=== PATIENT | female | born 1950 | race Caucasian/White ===

== ENCOUNTER 2017-03-11 09:18 | Observation (INO) | payer MEDICARE ==
[~2017-03-11] VITALS: Ht 162.6 cm; Wt 91.6 kg
[2017-03-11] VITALS (12 sets, daily range): BP systolic 135–185; BP diastolic 65–93; PULSE 90–102; RESP 14–20; O2SAT 98–100
[~2017-03-11 09:18] MED LIST: ESOM40CA41 PO; ESTR42.52 VG; LISI-567 PO; TRAM50TA2 PO; VALA500T38 PO
--- NOTE | 2017-03-11 09:35 | ED.REPORT ---
HPI-General Illness Date of Service Mar 11, 2017 ED Provider: Dr. Jimenez 66 y/o female with a hx of HTN presents to the ED due to low blood count as advised by her PCP, Dr. Yoon. Pt reports that Dr. Yoon was concerned her low blood count may be due to a gastric ulcer because this has happened previously. She has been feeling fatigued for approximately 2-3 weeks and it has been getting progressively worse. She also complains of dyspnea on exertion , LUQ abdominal pain, and lower extremity swelling (x2 weeks). Pt also feels nauseated about once every two weeks but she this is improved with Nexium. Pt denies melena, vomiting, diarrhea, dizziness and chest pain. She has also been taking Aleve every two days for a few years and was recently taking a baby aspirin everyday for two weeks until Dr. Yoon stopped this yesterday. Nursing Notes Stated Complaint: LOW BLOOD COUNT Chief Complaint: General Complaint Nursing Notes Reviewed: Yes Allergies: Coded Allergies: Quinolones (Verified Allergy, Severe, BRAIN SWELLS, 05/29/15) ibuprofen (Verified Allergy, Intermediate, hand swelling, 05/29/15) ciprofloxacin (Verified Allergy, Unknown, headache, 05/29/15) Sulfa (Sulfonamide Antibiotics) (Verified Adverse Reaction, Severe, Headache, 03/11/17) codeine (Verified Adverse Reaction, Severe, VOMIT, 05/29/15) Uncoded Allergies: Nonsteroidal Anti-Inflammatory Agts (Allergy, Severe, SWELLING, 05/29/15) Scheduled Cyclobenzaprine (Cyclobenzaprine) 10 Mg Tablet 10 MG PO HS Esomeprazole Magnesium (Nexium) 40 Mg Capsule.dr 40 MG PO BID Estradiol (Estradiol) 1 Mg Tablet 1.5 MG PO QAM Lisinopril (Lisinopril) 20 Mg Tablet 20 MG PO DAILY Valacyclovir (Valacyclovir) 500 Mg Tablet 500 MG PO DAILY Scheduled PRN Triamcinolone Acet (Triamcinolone Acetonide Cream) 1 Applic/0.25 Gm Cr 1 APPLIC TOPICAL BID PRN PRN rash General Time Seen by MD: 09:34 Chief Complaint Other (Low blood count) Hx Obtained From: Patient Arrived By: Walk-in Sudden in Onset?: No Onset Occurred: More than a week ago... (3 weeks) Symptom Duration: Since onset Severity: Current: No pain currently Severity: Maximum: No pain Recent Healthcare: Recent doctor visit Similar Sx Previous: No Past Medical History Past Medical History HTN PNEUMONIA HIATIAL HERNIA GERD HYDRONEPHROSIS (stents placed) BACK PAIN Past Surgical History LEFT KNEE REPLACEMENT ERIN CHOLYCYSTECTOMY HYSTERCTOMY Smoking History Unknown if Ever Smoker Social History Alcohol Use: "Social" Other Social History: Good social support, Ambulatory Status Independent Review of Systems Full Review of Systems Constitutional: Reports: Fatigue Respiratory: Reports: Dyspnea on exertion Cardiovascular: Reports: Edema (Lower extremity), Denies: Chest pain GI: Reports: Abdominal pain (LUQ on palpation), Nausea, Denies: Diarrhea, Melena, Vomiting Complete sys rev & neg: except as marked. Physical Exam Vital Signs Vital Signs Date Time Temp Pulse Resp B/P Pulse Ox O2 Delivery O2 Flow Rate FiO2 03/11/17 11:40 36.6 90 20 152/65 100 Room Air 03/11/17 09:22 36.9 98 16 159/87 100 Initial VS: Reviewed, Vital signs abnormal Head / Eyes: Atraumatic, Normocephalic, PERRL Neck: Supple, Non-tender, Full range of motion Extremities: Vascular intact, Neuro intact Skin: Warm, Dry, No cyanosis Neurologic: Alert, Oriented, Nonfocal Psychiatric: Mood/affect normal, Behavior normal, Normal thought content General/Constitutional: Awake, Alert +Pallor ENT: Atraumatic Mucous membranes dry. Respiratory / Chest: Atraumatic, Breath sounds NL, Breath sounds = bilat, No rales, No rhonchi, No wheezing Cardiovascular: Heart rate NL, Regular rhythm, Heart sounds NL, No gallop, No murmurs 2+ edema in lower extremeties. Abdomen: Atraumatic, Soft, Non-tender, No guarding, No rebound, BS normoactive , No distention, No hernia, No palpable mass Rectum / Perineum: No gross blood Rectal for Blood: Positive: Blood - occult heme + Interpretation & Diagnostics Lab Results Interpretation Result Diagram: 03/11/17 1035 03/11/17 1013 Test 03/11/17 10:13 03/11/17 10:24 03/11/17 10:35 White Blood Count 5.2th/mm3 (3.8-10.1) Red Blood Count 2.93mil/mm3 (3.90-5.20) Mean Corpuscular Volume 82.9fL (81-100) Mean Corpuscular Hemoglobin 25.3pg (27.0-35.0) Mean Corpuscular Hemoglobin Concent 30.5% (32.0-37.0) Red Cell Distribution Width 14.8% (12.3-15.4) Platelet Count 187bil/L (150-400) Neutrophils (%) (Auto) 59.5% (40-74) Lymphocytes (%) (Auto) 25.1% (14-46) Monocytes (%) (Auto) 9.8% (4-12) Eosinophils (%) (Auto) 4.6% (0-5) Basophils (%) (Auto) 0.8% (0-3) Sodium Level 136mEq/L (134-144) Potassium Level 4.3mEq/L (3.5-5.2) Chloride Level 103mEq/L (97-108) Carbon Dioxide Level 19mmol/L (18-29) Blood Urea Nitrogen 11mg/dL (8-27) Creatinine 0.73mg/dL (0.57-1.00) Estimat Glomerular Filtration Rate 114mL/min (>59) Glucose Level 142mg/dL (60-99) Calcium Level 8.7mg/dL (8.5-10.1) Magnesium Level 1.9mg/dL (1.6-2.6) Total Bilirubin 0.9mg/dL (0.0-1.2) Aspartate Amino Transf (AST/SGOT) 71U/L (0-50) Alanine Aminotransferase (ALT/SGPT) 30U/L (0-32) Alkaline Phosphatase 118U/L (25-165) Troponin T 0.010ug/L (0.0-0.011) Total Protein 7.4g/dL (6.4-8.4) Albumin 3.5g/dL (3.4-5.0) Lipase 34U/L (13-60) Hold Mckeon Top Tube Received (Received) Hemoglobin 7.0g/dL (12.0-15.6) Hematocrit 23.0% (35.0-46.0) ECG Interpretation ECG Interpretation: sinus rhythm with 1st degree AV block. Rate [address] or QT changes. Time: 10:11 Interpreted by: ED physician Re-Eval/Medical Decision Med Decision/Clinical Course The patient presents with dyspnea on exertion, she is pale and has low hemoglobin and hematocrit. The patient is Hemoccult positive with brown stool. She recently started aspirin and is chronically on NSAIDs which is likely the cause of her symptoms. Given she symptomatic she will need transfusion. I spoke with GI and they will try to scope her today. The patient was started on Protonix. Source of Hx: Old records Time of Eval: 11:48 Re-Evaluation/Progress Note: Pt rechecked. Pt reports eating a cookie at 0600 this morning. Informed pt of need for admission. Pt understands and agrees with the plan for admission. All questions addressed. Consultation #1: Referral / Consult Name: Andrés Tim MD Call Returned at: 11:24 Office Assistant: Will see patient, Agrees with plan Note: Will be doing an upper endoscopy today. Consultation #2: Referral / Consult Name: Maggie Maloney MD Consulted With: Hospitalist Call Returned at: 11:58 Office Assistant: Will see patient, Agrees with eval, Agrees with plan, Accepts admit Counseled Regarding: Diagnosis, Lab results, Need for admission Discharge & Departure Primary Impression: Upper GI bleed Disposition: ADMITTED TO HOSPITAL Discharge Condition All VS Reviewed: Yes Referrals: Florencia Yoon MD (PCP) Scribe Attestation Portions of this note were transcribed by Tiffany Pena and Lola Jhaveri. I, , personally performed the history, physical exam and medical decision-making;I reviewed and confirmed the accuracy of the information in the transcribed note. Signed by Tiffany Jhaveri, Rajibe. 03/11/17 12:55 copies to: Florencia Yoon MD, Jena M MD Mar 11, 2017 09:35 Tiffany Pena Mar 11, 2017 09:56 Lola Jhaveri Mar 11, 2017 11:29
[2017-03-11] MEDS ORDERED: Pantoprazole 4 mg/mL 10 mL Inj IVPUSH ONE (09:55)
[2017-03-11] MEDS ORDERED: 0.9% Sodium Chloride 1,000 ML IV ONE (09:55)
[2017-03-11] MEDS ORDERED: Pantoprazole Inj 80 MG, Pharmacy To Mix 1 EA in 0.9% Sodium Chloride 80 ML IV ONE ×2 (09:55)
[2017-03-11] MEDS: Pantoprazole Inj 80 MG in 0.9% Sodium Chloride 80 ML IV SCH ×2 (10:15→22:25)
[2017-03-11 10:16] LABS: BASOPHILS % (AUTO) 0.8 % (0-3); EOSINOPHILS % (AUTO) 4.6 % (0-5); MONOCYTES % (AUTO) 9.8 % (4-12); Mean Corpuscular Hemoglobin 25.3 pg (27.0-35.0); Mean Corpuscular Volume 82.9 fL (81-100); NEUTROPHILS % (AUTO) 59.5 % (40-74); Platelet Count 187 bil/L (150-400)
[2017-03-11 10:38] LABS: TROPONIN T 0.01 ug/L (0.0-0.011)
[2017-03-11 10:50] LABS: Magnesium 1.9 mg/dL (1.6-2.6)
[2017-03-11] MEDS: 0.9% Sodium Chloride 1,000 ML IV SCH ×2 (12:12→21:44)
[2017-03-11] MEDS ORDERED: Ondansetron 2 mg/mL 2 mL Inj IVPUSH PRN ×2 (12:15→15:55)
[2017-03-11] MEDS ORDERED: Alum-Mag Hydrox-Simeth 30 mL Suspension PO PRN (12:15)
[2017-03-11] MEDS ORDERED: Polyethylene Glycol (PEG) 17 Gm Powder PO PRN (12:15)
[2017-03-11] MEDS ORDERED: Propofol 10,000 mCg/mL 20 mL Inj ONE (12:30)
[2017-03-11 13:15] LABS: APPEARANCE,URINE HAZY (CLEAR,HAZY); COLOR,URINE YELLOW (YELLOW); OCCULT BLOOD,URINE NEGATIVE (NEGATIVE); PH,URINE 5.5 (5.0-8.0); UROBILINOGEN,URINE NORMAL (NORMAL)
[2017-03-11] MEDS ORDERED: CYCL10TA9 PO (13:21)
[2017-03-11] MEDS ORDERED: ESTR1TAB24 PO (13:21)
[2017-03-11] MEDS ORDERED: KEN1C TOPICAL (13:21)
[2017-03-11] MEDS ORDERED: ESOM40CA41 PO (13:21)
--- NOTE | 2017-03-11 13:30 | NUR ---
ADMIT Report received from Laly Clemens RN. Pt brought onto floor around 1330 via gurney. Pt strong and steady on feet, denies pain and SOB. Pt oriented to Unit, Room, and call light. Belongings put away with waiver signed. Med Rec and admission interventions completed in ED by Admit nurse.
[2017-03-11] MEDS ORDERED: 0.9% Sodium Chloride 250 ML ONE (13:43)
--- NOTE | 2017-03-11 13:50 | PCM.CHPMED ---
Subjective Date of Service: Mar 11, 2017 Primary Physician: Admitting Physician: Jin Klein MD Primary Care Physician: Florencia Yoon MD Attending Physician: Jin Klein MD Admit Status: From the Emergency Department Chief Complaint: Chief Complaint: Reason for consultation: Acute anemia likely secondary to upper GI bleed. History of Present Illness: GASTROENTEROLOGY CONSULTATION: Ms. Rachele White is a pleasant 66 yo female with a history of hiatal hernia s/p Addy fundoplication, peptic ulcer, GERD, chronic back/neck pain, and HTN who presents to the ED for decreasing blood count as advised by her PCP, Dr. Yoon. Patient reports to have blood draw 2 days ago that showed a low hemoglobin (unknown level). She had a repeat blood test yesterday, which showed worse level of Hemoglobin. Therefore, she was told by Dr. Yoon to go to the ER. The patient was also referred urgently to a [facility] this Tuesday for both upper and lower endoscopy. Patient admits to generalized weakness, fatigue, lower extremity edema, and exertional dyspnea for the last 3 weeks. She also notes a vague, intermittent LUQ abdominal pain for the last 6 months. She reports occasional nausea, probably once a week, that improves with Nexium. She admits to frequent use of Aleve for her chronic pain as she cannot tolerate opioids as well as a baby ASA daily. Her last dose of Aleve was approximately 3 days ago and the baby ASA was stopped by Dr. Yoon yesterday. Patient denies similar symptoms in the past, but reports a history of peptic ulcer disease that was found on a EGD in 2012. She has been on Nexium and has not had any issue with it. She denies vomiting, hematemesis, hematochezia, melena, diarrhea , constipation, dizziness, fever, or chills. She also denies weight loss, history of smoking, frequent alcohol use, or recent travel. Her last colonoscopy was over 10 years ago and it was normal. She denies history of anemia or liver disease. Family history is significant for gastric cancer in her father and esophageal cancer in her brother. In the ED, patient has normal vital signs and labs, except for Hemoglobin of 7.0. No gross blood on rectal exam but occult heme was positive. She was started on PPI and plan for 2 units of PRBC transfusion. Review of Systems: Constitutional: Reports: Malaise, Weakness, Denies: Chills, Fever Eyes: Denies: Blurred Vision, Conjunctive Inflammation, Double Vision Neck: Denies: Pain, Swelling Cardiovascular: Reports: Edema, SOB on Exertion, Denies: Chest Pain, Irregular Heart Rate, Palpitations, Rapid Heart Rate Respiratory: Reports: Cough, SOB with Exertion, Shortness of Breath, Denies: Cough with bloody sputum, Sputum, Wheezing Gastrointestinal: Reports: Abdominal Pain (LUQ), Change in Appetite, Heartburn , Nausea, Denies: Black tarry stools, Blood in stool (red), Constipation, Diarrhea, Vomiting Genitourinary: Reports: No burning or pain with urination, Denies: Decrease Urinary Output, Hematuria, Nocturia Musculoskeletal: Reports: Back Pain, Neck Pain Skin: Denies: Blisters, Bruising, Dry or Flakiness, Itching, Lesions Neurological: Denies: Change in Speech, Confusion, Dizziness Psychologic: Denies: Agitation, Anxiety, Depression, Insomnia Hematologic: Denies: Abnormal Bleeding, Bruising PMH Past Medical History HTN PNEUMONIA HIATIAL HERNIA S/P ADDY GERD PEPTIC ULCER DISEASE HYDRONEPHROSIS (stents placed) BACK/NECK PAIN Surgical History LEFT KNEE REPLACEMENT ADDY CHOLYCYSTECTOMY HYSTERCTOMY Renal stents x 2 Several back/neck, fingers, and elbow surgeries Home Medications Scheduled Esomeprazole Magnesium (Nexium) 40 Mg Capsule.dr 40 MG PO DAILY Estradiol (Estrace) 42.5 Gm Cream.appl 1 G VG 2X/WK Lisinopril (Lisinopril) 20 Mg Tablet 20 MG PO DAILY Valacyclovir (Valacyclovir) 500 Mg Tablet 500 MG PO DAILY Scheduled PRN Tramadol (Tramadol) 50 Mg Tablet 50 MG PO Q4H PRN PRN For Pain Allergies: Coded Allergies: Quinolones (Verified Allergy, Severe, BRAIN SWELLS, 05/29/15) ibuprofen (Verified Allergy, Intermediate, hand swelling, 05/29/15) ciprofloxacin (Verified Allergy, Unknown, headache, 05/29/15) Sulfa (Sulfonamide Antibiotics) (Verified Adverse Reaction, Severe, Headache, 03/11/17) codeine (Verified Adverse Reaction, Severe, VOMIT, 05/29/15) Uncoded Allergies: Nonsteroidal Anti-Inflammatory Agts (Allergy, Severe, SWELLING, 05/29/15) Family History Family History Father with gastric cancer, passed at 85 yo. Brother with esophageal cancer due to smoking. Social History Hx Alcohol Use: Yes (socially)Hx Substance Use: NoHx Tobacco Use: No Smoking Status: Never Smoker Living Arrangement: with Family Additional Information Patient used to work at a [employer]. Exam Vital Signs Vital Sign - Last Date Time Temp Pulse Resp B/P Pulse Ox O2 Delivery O2 Flow Rate FiO2 03/11/17 12:30 36.9 93 15 03/11/17 11:40 152/65 100 Room Air General: Alert, Oriented X3 Eyes: PERRLA, EOMI, Scleral Anicteric, Other (scleral pallor) Mouth: Mouth Normal, Mucous Membranes Dry Neck: Supple, No Thyromegaly Chest & Lungs: Chest Wall Normal, Clear to auscultation & percussion, No adventitious breath sounds Cardiovascular: Exam Unremarkable, Regular Rate/Rhythm, Normal S1, Normal S2, No Murmurs/Rubs/Gallops Abdomen: Non-distended, No masses, No hepatosplenomegaly, Soft, Other (mild tenderness to palpation in LUQ, no guarding or rebound.) Musculoskeletal: Normal Range of Motion Extremities: Warm, Edema (moderate pitting edema on the bilateral lower extremities) Neurological: Grossly Neurologically Intact, Normal Speech, Sensation Intact Lab and Diagnostics Result Diagram: 03/11/17 1035 03/11/17 1013 Assessment & Plan Assessment This is a 66 yo female with a history of hiatal hernia s/p Addy fundoplication , peptic ulcer disease, GERD, chronic back/neck pain, and HTN who presented with acute anemia. She has been symptomatic for 3 weeks and was found to have low Hemoglobin by her PCP yesterday. Per record, patient had an EGD by Dr. Terry Garzon for recurrent LUQ pain in 08/24/2013. The EGD showed s/p Addy fundoplication, possible portal hypertensive gastropathy, antral peptic ulcer disease, and bulbar duodenitis. She was advised to take daily Nexium and discontinue all NSAIDs. However, patient continues to take Aleve on the regular basis for her chronic back and neck pain. Patient presented to the ED today with Hemoglobin of 7.0 and is getting 2 units of PRBCs. GI service was consulted to help investigating the upper GI bleed. Potential bleeding sources include peptic ulcer disease, esophageal ulcer, portal hypertensive gastropathy , angiodysplasia, Kellee-Oliveira tear, or malignancy. IMPRESSIONS: 1. Acute normocytic anemia likely secondary to upper GI bleed. 2. History of peptic ulcer disease. RECOMMENDATIONS: - NPO - Start Protonix 40mg IV BID - [place] of an EGD was discussed with its usual risks and patient agreed to proceed. - Patient has an appointment with GI as outpatient for both upper and lower endoscopy. We will proceed with the EGD only today and if it is nondiagnostic, then we will consider the colonoscopy. - Monitor serial H/H and keep hemoglobin above 7. We will defer the transfusion plan to the primary care team. - Avoid all NSAIDs, including the baby ASA. Thank you for allowing us to participate in this patient's care. Please do not hesitate to contact us for any question or concern. Problems: Pain Evaluation: Adequate Pain Control GI Prophylaxis: Proton Pump Inhibitor VTE Prophylaxis Indicated: Contraindicated Resuscitation Status: CPR: Attempt Resuscitation Attending Statement pt seen and examined with resident physician agree with her H and P and plan as above will plan for EGD to evaluate symptomatic anemia without overt bleeding. Sea Umanzor DO Mar 11, 2017 13:50 Andrés Tim MD Mar 13, 2017 10:54
--- NOTE | 2017-03-11 15:06 | PCM.HPMED ---
Subjective Date of Service Mar 11, 2017 Primary Provider: Admitting Physician: Jin Klein MD Primary Care Physician: Florencia Yoon MD Attending Physician: Jin Klein MD Admit Status: From the Emergency Department, 23-Hour Observation Chief Complaint: Generalized weakness/2 weeks Epigastric pain/2 weeks Anemia noted on blood work at PCP History of Present Illness: Rachele is a 66-year-old pleasant lady with past medical history of hiatal hernia s/p Addy fundoplication, peptic ulcer , GERD, chronic back and neck pain, HTN came to emergency room due to generalized weakness and epigastric pain of 2 weeks. Patient states she started to have epigastric dull aching pain 2 weeks ago and she started taking aspirin 81 mg daily 2 weeks ago due to concern for heart disease but continued to have the pain and started to have progressively worsening generalized weakness for the last 2 weeks. She was seen by her PCP who noted anemia on CBC and send her to ED for evaluation of anemia and possible GI bleed. Patient states she also takes Aleve almost every other day for her neck and back pain for many years. She has been feeling generally weak and dyspneic which is more marked on exertion even with walking few steps. Denies any blood thinner use except long-standing Aleve and aspirin for the last 2 weeks. Last colonoscopy 10 years ago. Father of gastric cancer and her brother has history of esophageal cancer. ED course: Initial BP 159/87, HR 98, saturating 100% on room air. Labs unremarkable except anemia with hemoglobin 7.4. Stool occult positive. 2 PRBCs ordered. GI consulted and planning to do endoscopy later today Review of Systems: Comprehensive review of systems performed, pertinent positives and negatives included in history of present illness Allergies Coded Allergies: Quinolones (Verified Allergy, Severe, BRAIN SWELLS, 05/29/15) ibuprofen (Verified Allergy, Intermediate, hand swelling, 05/29/15) ciprofloxacin (Verified Allergy, Unknown, headache, 05/29/15) Sulfa (Sulfonamide Antibiotics) (Verified Adverse Reaction, Severe, Headache, 03/11/17) codeine (Verified Adverse Reaction, Severe, VOMIT, 05/29/15) Uncoded Allergies: Nonsteroidal Anti-Inflammatory Agts (Allergy, Severe, SWELLING, 05/29/15) Home Medications Aspirin 81 mg by mouth daily started 2 weeks ago Aleve when necessary, uses almost every day Cyclobenzaprine (Cyclobenzaprine) 10 Mg Tablet 10 MG PO HS Esomeprazole Magnesium (Nexium) 40 Mg Capsule.dr 40 MG PO BID Estradiol (Estradiol) 1 Mg Tablet 1.5 MG PO QAM Lisinopril (Lisinopril) 20 Mg Tablet 20 MG PO DAILY Valacyclovir (Valacyclovir) 500 Mg Tablet 500 MG PO DAILY PMH HTN HIATIAL HERNIA S/P ADDY GERD History of PEPTIC ULCER DISEASE HYDRONEPHROSIS due to PUJ obstruction status post left pyeloplasty and stent placement on 06/02/15 BACK/NECK PAIN STATUS post surgery History of multiple herpes on chronic valacyclovir Prophylaxis Surgical History LEFT KNEE PARTIAL REPLACEMENT ADDY fundoplication CHOLYCYSTECTOMY HYSTERCTOMY status post left pyeloplasty and stent placement on 06/02/15 Several back/neck/surgery, fingers, and elbow surgeries Family History Father of gastric cancer and her brother has history of esophageal cancer. Social History Hx Alcohol Use: Yes (socially) Hx Substance Use: No Hx Tobacco Use: No Smoking Status: Never Smoker Living Arrangement: with Family Exam Vital Signs Vital Sign - Last Date Time Temp Pulse Resp B/P Pulse Ox O2 Delivery O2 Flow Rate FiO2 03/11/17 14:39 36.7 93 14 162/90 99 Room Air Exam Gen. patient is lying comfortably in hospital bed HEENT: Head is normocephalic atraumatic, pale conjunctiva Lungs clear to auscultation bilaterally Heart regular rate and rhythm without murmurs gallops or rubs Abdomen soft nontender without hepatosplenomegaly Extremities pulses are present dorsalis pedis posterior tibialis and radial. tSkin is warm and dry there are no rashes, Psych alert and oriented to person place and time Neuro cranial nerves II through XII are grossly intact Lymph: There is no lymphadenopathy appreciated in the cervical supra infraclavicular regions : no aviles Lab and Diagnostics Result Diagram: 03/11/17 1035 03/11/17 1013 Assessment & Plan Rachele is a 66-year-old pleasant lady with past medical history of hiatal hernia s/p Addy fundoplication, peptic ulcer , GERD, chronic back/neck pain, and HTN came to emergency room due to generalized weakness and epigastric pain of 2 weeks. # Upper GI bleeding due to suspected ulcer -In setting of combined NSAIDs and aspirin use -GI consulted and planning to do endoscopy today -Discontinued NSAIDs and aspirin yesterday by PCP -Protonix drip -npo # Acute blood loss anemia -Due to above -2 PRBCs requested by ED -Follow-up CBC closely # History of HTN -Hold medications for today. # History of neck and back pain -No pain now -Morphine when necessary Full code,verified from patien observation status .anticipate discharge tomorrow, Pain Evaluation: Adequate Pain Control GI Prophylaxis: Proton Pump Inhibitor VTE Prophylaxis Indicated: Contraindicated Resuscitation Status: CPR: Attempt Resuscitation copies to: Florencia Yoon MD, Melaku MD Mar 11, 2017 15:06
--- NOTE | 2017-03-11 15:45 | NUR ---
Pt off floor upper Endoscopy. Taken via [facility] staff veterinarian transporting pt. No s/sx of distress.
[2017-03-11] MEDS ORDERED: Lactated Ringer's 1,000 ML IV SCH (15:53)
[2017-03-11] MEDS ORDERED: Lactated Ringer's 1,000 ML IV ONE (15:53)
[2017-03-11] MEDS ORDERED: MetoCLOpramide 5 mg/mL 2 mL Inj IVPUSH PRN (15:55)
--- NOTE | 2017-03-11 16:05 | PCM.HPANE ---
Patient Data Surgeon Admitting Provider:Jin Klein MD Attending Provider:Jin Klein MD Primary Care Physician:Florencia Yoon MD Other Provider: Reason for Visit UGIB Ht/WT & BMI Height (Feet): 5 Height (Inches): 4.00 Weight (Kilograms): 91.600 Body Mass Index 34.00 Allergies Coded Allergies: Quinolones (Verified Allergy, Severe, BRAIN SWELLS, 05/29/15) ibuprofen (Verified Allergy, Intermediate, hand swelling, 05/29/15) ciprofloxacin (Verified Allergy, Unknown, headache, 05/29/15) Sulfa (Sulfonamide Antibiotics) (Verified Adverse Reaction, Severe, Headache, 03/11/17) codeine (Verified Adverse Reaction, Severe, VOMIT, 05/29/15) Uncoded Allergies: Nonsteroidal Anti-Inflammatory Agts (Allergy, Severe, SWELLING, 05/29/15) Past Anesthesia History Anesthesia History: Positive for:: Anesthesia Reactions (HYPERTENSION), Denies:: Abnormal Airway, Difficult Intubation, Fam Anesthesia Reaction, Fam Malignant Hypertherm, Malignant Hyperthermia Diabetes History Hx Diabetes?: No MRSA MRSA: No Medications Reported Medications Esomeprazole Magnesium (Nexium)40 Mg Capsule.dr40 Mg PO BID 03/11/17 Triamcinolone Acet (Triamcinolone Acetonide Cream)1 Applic/0.25 Gm Cr1 Applic TOPICAL BID PRN rash 03/11/17 Cyclobenzaprine 10 Mg [id number] Mg PO HS 03/11/17 Estradiol 1 Mg Tablet1.5 Mg PO QAM 03/11/17 Lisinopril 20 Mg [id number] Mg PO DAILY 30 Days Ref 0 05/29/15 Valacyclovir 500 Mg [id number] Mg PO DAILY 05/29/15 Discontinued Reported Medications Esomeprazole Magnesium (Nexium)40 Mg Capsule.dr40 Mg PO DAILY 30 Days Ref 0 05/29/15 Estradiol (Estrace)42.5 Gm Cream.appl1 G VG 2X/WK #1 TUBE Ref 0 05/29/15 Tramadol 50 Mg [id number] Mg PO Q4H PRN For Pain Ref 0 05/29/15 History History of ENT Problems?: Yes HEENT History: Denies:: Abnormal Airway Difficult Intubation Hearing Problem Sinus Problem (HX EPISTAXIS) Denture Type: None Teeth Condition: Within Normal Limits Hx of Heart Problems?: Yes Cardiovascular History: Positive for:: Chest Pain (05/2014 ) Hypertension Denies:: Congestive Heart Failure Heart Murmur (ECHO 07/2014) Valvular Heart Disease Hx of Respiratory Problem?: Yes Respiratory History: Positive for:: Dyspnea (endorses BOOTH, but walks ~2 miles daily) Pneumonia (10 years ago?) Denies:: Asthma COPD Chest Surgery Emphysema Hemoptysis Tuberculosis Use of C-PAP Machine Hx Neurologic Problems?: No Neurological History: Denies:: CVA Hx of GI Problems?: Yes Other History/Comment Anemia here for consideratoin of Upper GI bleed Hx of Problems?: Yes Genitourinary History: Positive for:: Kidney Stones (LT UPJ OBST W/ HYDRONEPHROSIS=CURRENT PROBLEM) Urinary Tract Infection (HOSP 09/2012 W/ PYELONEPHRITIS) Denies:: HX of Hemodialysis HX of Peritoneal Dialysis: No Female Hx: Denies:: Endometriosis Pelvic Inflammatory (HX ATROPHIC VAGINITIS) Problems with Breasts? Skin History: Denies:: History Skin Disorders? Pressure Ulcers Hx Musculoskeletal Problems?: Yes Musculoskeletal History: Positive for:: Back Injury (lower back pain) Joint Replacement (S/P LT UNI KNEE) Denies:: Musculoskeletal Trauma Hx of Psycho/Social Problems?: No Hx Surgeries?: Yes (ERIN, CHOLY, HYST, L PARTIAL KNEE, C5-7 FUSION, lumbar lami) Hx Any Other Health Problems?: Yes Other History: Positive for:: Hospitalization Thyroid Disease Denies:: Cancer Endocrine Disease History Blood Transfusions: Positive for:: Accept Blood Products? Denies:: Blood Transfuse Reaction Blood Transfusions Hx Diabetes: No Hx Alcohol Use: Yes (socially)Hx Substance Use: No Smoking Status: Never Smoker Have You Smoked inLast 12 mo: No Stop/Bang Treated for Sleep Apnea?: No Do You Have a CPAP Machine?: No S-Snoring: Do You Snore Loudly: No T-Tired: feel tired, fatigued: No O-Obsered: Observed not breath: No P-Blood Pressure: treated: Yes B- Body Mass Index > 35 kg/m2: No A- Age over 50: Yes N- Neck Large Circumference: No G- Gender Male: No KARTIK Total Score: 2 Risk Assessment Category Category 1A: Patient has history of documented sleep apnea, and HAS NOT received any narcotic, sedative or anesthesia administration during this stay. Category 1B: Patient has history of documented sleep apnea, and HAS received any narcotic , sedative or anesthesia administration during this stay Category 2: Patient has SUSPECTED Obstructive Sleep Apnea, and HAS received any narcotic , sedative or anesthesia administration during this stay. Category 3: Patient has SUSPECTED Obstructive Sleep Apnea and HAS NOT received narcotic, sedative or anesthesia administration during this stay. Category 4: Outpatient in Procedural Areas with known sleep apnea or who screen positive for High Risk via the STOP/BANG questionnaire. Exam Exam Vital Signs Vital Signs Date Time Temp Pulse Resp B/P Pulse Ox O2 Delivery O2 Flow Rate FiO2 03/11/17 15:53 36.5 92 14 161/91 99 Room Air 03/11/17 14:39 36.7 93 14 162/90 99 Room Air 03/11/17 14:21 36.6 102 20 185/80 03/11/17 13:59 100 03/11/17 13:52 36.6 102 20 185/80 99 Room Air 03/11/17 13:35 36.8 92 18 156/67 100 Room Air 03/11/17 12:30 36.9 93 15 03/11/17 11:40 36.6 90 20 152/65 100 Room Air 03/11/17 09:22 36.9 98 16 159/87 100 General Appearance: Alert, Oriented X3, Cooperative HEENT/AIRWAY: MP 2 Lungs: Clear to Auscultation, Normal Air Movement Heart: Exam Unremarkable Meds/Labs/Diagnostics Admission Meds Current Medications Sodium Chloride (Normal Saline) 1,000 ml @ 0 mls/hr Q0M ONCE IV Last administered on 03/11/17 10:19; Start 03/11/17 at 09:55; Stop 03/11/17 at 09:56 ; Status DC Pantoprazole 80 mg 80 mg STAT ONCE IVPUSH Last administered on 03/11/17 10:20 ; Start 03/11/17 at 09:55; Stop 03/11/17 at 09:56; Status DC Pantoprazole 80 mg/Miscellaneous 1 ea/Sodium Chloride 100 ml @ 10 mls/hr ONCE ONCE IV Last administered on 03/11/17 10:41; Start 03/11/17 at 09:55; Stop at 19:54 Sodium Chloride 1,000 ml @ 100 mls/hr Q10H IV Last administered on 03/11/17 12:12; Start 03/11/17 at 12:12 Pantoprazole 80 mg/Sodium Chloride 100 ml @ 10 mls/hr Q10H IV Last administered on 03/11/17 10:15; Start 03/11/17 at 12:30 Sodium Chloride (Normal Saline) 250 ml @ ud STK-MED ONCE .ROUTE Last administered on 03/11/17 15:41; Start 03/11/17 at 13:43; Stop 03/11/17 at 13:46 ; Status DC Labs Test 03/11/17 10:13 03/11/17 10:24 03/11/17 10:35 03/11/17 12:54 White Blood Count 5.2th/mm3 (3.8-10.1) Red Blood Count 2.93mil/mm3 (3.90-5.20) Mean Corpuscular Volume 82.9fL (81-100) Mean Corpuscular Hemoglobin 25.3pg (27.0-35.0) Mean Corpuscular Hemoglobin Concent 30.5% (32.0-37.0) Red Cell Distribution Width 14.8% (12.3-15.4) Platelet Count 187bil/L (150-400) Neutrophils (%) (Auto) 59.5% (40-74) Lymphocytes (%) (Auto) 25.1% (14-46) Monocytes (%) (Auto) 9.8% (4-12) Eosinophils (%) (Auto) 4.6% (0-5) Basophils (%) (Auto) 0.8% (0-3) Sodium Level 136mEq/L (134-144) Potassium Level 4.3mEq/L (3.5-5.2) Chloride Level 103mEq/L (97-108) Carbon Dioxide Level 19mmol/L (18-29) Blood Urea Nitrogen 11mg/dL (8-27) Creatinine 0.73mg/dL (0.57-1.00) Estimat Glomerular Filtration Rate 114mL/min (>59) Glucose Level 142mg/dL (60-99) Calcium Level 8.7mg/dL (8.5-10.1) Magnesium Level 1.9mg/dL (1.6-2.6) Total Bilirubin 0.9mg/dL (0.0-1.2) Aspartate Amino Transf (AST/SGOT) 71U/L (0-50) Alanine Aminotransferase (ALT/SGPT) 30U/L (0-32) Alkaline Phosphatase 118U/L (25-165) Troponin T 0.010ug/L (0.0-0.011) Total Protein 7.4g/dL (6.4-8.4) Albumin 3.5g/dL (3.4-5.0) Lipase 34U/L (13-60) Hold Mckeon Top Tube Received (Received) Hemoglobin 7.0g/dL (12.0-15.6) Hematocrit 23.0% (35.0-46.0) Urine Color Yellow (YELLOW) Urine Appearance Hazy (CLEAR,HAZY) Urine pH 5.5 (5.0-8.0) Urine Specific [place] 1.010 (1.003-1.035) Urine Protein Negativemg/dL (NEG,TRACE) Urine Glucose (UA) Negativemg/dL (NEGATIVE) Urine Ketones Negativemg/dL (NEGATIVE) Urine Occult Blood Negative (NEGATIVE) Urine Nitrite Negative (NEGATIVE) Urine Bilirubin Negative (NEGATIVE) Urine Urobilinogen Normalmg/dL (NORMAL) Urine Leukocyte Esterase Trace (NEGATIVE) Urine RBC 0-2/hpf (0-2) Urine WBC 6-10/hpf (0-5) Urine Epithelial Cells Moderate/hpf (NONE-MOD) Urine Crystals None seen (NONE SEEN) Urine Bacteria Many/hpf (NONE-FEW) Urine Hyaline Casts None/lpf (NONE) Urine Granular Casts None seen (NONE SEEN) Urine Waxy Casts None seen (NONE SEEN) Urine Red Blood Cell Casts None seen (NONE SEEN) Urine White Blood Cell Casts None seen (NONE SEEN) Urine Mucus None seen (None Seen) Urine Trichomonas None seen (NONE SEEN) Urine Yeast None (NONE SEEN) Urinalysis Comment None Urine Culture Reflexed Indicated Plan Impression Patient chart reviewed, patient interviewed and anesthestic plan with risks, benefits, and alternatives discussed, and informed consent obtained. ASA Physical Status: ASA3 Severe Disease Anesthetic Plan: GA Bene/Risks/Altern/Consents: Yes HP Complete Prior to Induction: Yes Avery Wynn MD Mar 11, 2017 16:05
--- NOTE | 2017-03-11 17:20 | ENDO ---
[address] [address] ENDOSCOPY PROCEDURE PATIENT: MIREYA LAY : 1950 MR#: [id number] ADMIT: 03/11/2017 JOB ID: [id number] PROCEDURE: Esophagogastroduodenoscopy. INDICATION: Anemia, chronic. The patient's ASA classification and Mallampati score and medications as per anesthesia report. INSTRUMENT USED: [id number] PROCEDURE DETAILS: After informed consent was obtained, the patient was brought to the GI suite, where she was placed on oxygen via nasal cannula and monitored with continuous pulse oximeter, telemetry, and blood pressure monitoring. A time-out was performed. Then, she was placed in a left lateral decubitus position and medications were administered for sedation. A bite block was placed. The standard EGD scope was inserted through the bite block and advanced under direct visualization to second portion of duodenum without difficulty. FINDINGS: 1. Normal appearing duodenal bulb, first and second portion. Bile stained mucosa was noted throughout the examined portions of duodenum. 2. Normal appearing pylorus. In the antrum and distal gastric body, there was submucosal hemorrhage noted. The mucosa also had a mosaic appearance suggestive of portal gastropathy. 3. Retroflexed views in the gastric body revealed changes consistent with prior Addy fundoplication. Also noted in the fundus of the mucosa had a mosaic appearance. 4. The GE junction was approximately 36 cm. From 36 cm extending to 30 cm, there were three columns of varices that flattened out with insufflation. The varices had no stigmata of recent bleeding. From 30 cm to the upper esophageal sphincter, the esophagus appeared normal. IMPRESSION: 1. Portal gastropathy. 2. Small esophageal varices. RECOMMENDATIONS: 1. CT of the abdomen. 2. Chronic liver disease workup. 3. Will schedule her for colonoscopy as an outpatient. COMPLICATIONS: None. ESTIMATED BLOOD LOSS: Zero. MTDD
--- NOTE | 2017-03-11 18:48 | NUR ---
Ambulation Upon admission pt reported fatigue and weak with a low hemoglobin/hct of 7.0/23. Pt instructed to call for assistance before ambulating for further assessment. Uses call light appropriately. Pt is strong with steady gate. No weakness or dizziness observed. No near falls during shift.
--- NOTE | 2017-03-11 20:33 | DRSVH ---
PROCEDURE: CT ABDOMEN AND PELVIS WITH CONTRAST ([id number]) INDICATIONS: GI bleed TECHNIQUE: After the administration of oral and intravenous contrast, 5 mm thick sections acquired from the diap hragms to the symphysis. 5 mm thick coronal and sagittal reformats were performed. For radiation do se reduction, the following was used: automated exposure control, adjustment of mA and/or kV accordi ng to patient size. COMPARISON: [facility], CT, ABD/PELVIS W&WO CON (PN), 11/09/2012, 8:11. FINDINGS: Image quality: Excellent. ABDOMEN: Lung bases: Lung bases are clear. Heart size is normal. Solid organs: Hepatic contour is nodular, indicating cirrhosis. Gallbladder is surgically absent. Bi liary system is non-dilated. Pancreas enhances normally. No adrenal nodules. Right kidney is within normal limits. There is moderate left renal atrophy. Peritoneum and bowel: Addy fundoplication has been performed. Stomach, small bowel, and colon loop s are normal in caliber and wall thickness. Pneumoperitoneum. Small amount of ascites. Nodes and vessels: Periesophageal varices are present. No retroperitoneal or mesenteric adenopathy. Aorta and inferior vena cava are normal in caliber. Miscellaneous: No ventral hernias. PELVIS: Genitourinary: Urinary bladder is decompressed. Miscellaneous: No inguinal hernias or adenopathy. Bones: No suspicious bony lesions. No vertebral body compression fractures. IMPRESSION: 1. Cirrhosis and portal hypertension, with associated periesophageal varices. 2. Small amount of ascites. Dictated by: Melissa Cueva M.D. on 03/11/2017 at 20:29 Approved by: Melissa Cueva M.D. on 03/11/2017 at 20:31
[2017-03-12 00:21] VITALS: BP 129/73; PULSE 98; RESP 18; O2SAT 96
[2017-03-12 04:51] VITALS: BP 138/80; PULSE 93; RESP 18; O2SAT 96
[2017-03-12 05:46] VITALS: PULSE 95
[2017-03-12 07:09] LABS: BASOPHILS % (AUTO) 0.6 % (0-3); EOSINOPHILS % (AUTO) 3.9 % (0-5); MONOCYTES % (AUTO) 7.7 % (4-12); Mean Corpuscular Hemoglobin 25.9 pg (27.0-35.0); Mean Corpuscular Volume 83.8 fL (81-100); NEUTROPHILS % (AUTO) 65.2 % (40-74); Platelet Count 150 bil/L (150-400)
[2017-03-12 07:24] LABS: Magnesium 1.8 mg/dL (1.6-2.6)
[2017-03-12] MEDS: 0.9% Sodium Chloride 1,000 ML IV SCH (07:45)
[2017-03-12 07:57] VITALS: PULSE 90
--- NOTE | 2017-03-12 08:18 | PCM.DIMED ---
Discharge Instructions Date of Service Mar 12, 2017 Dates of Hospitalization Mar 11, 2017 at 12:03 Discharge Diagnosis Discharge Diagnosis # Upper GI bleeding due to varices # Acute blood loss anemia requiring transfusion # Liver cirrhosis of unclear etiology # History of HTN # History of neck and back pain Test Results # endoscopy 1. Portal gastropathy. 2. Small esophageal varices. #CT 1. Cirrhosis and portal hypertension, with associated periesophageal varices. 2. Small amount of ascites. Diet Low fat, Low Sodium Activity Limited until seen by PCP Call your provider Fever or Chills, Shortness of breath, Bleeding, Chest pain, Vomitting, Excessive diarrhea, Weakness (unilateral) Patient Instructions You were hospitalized due to GI bleeding due to esophageal varices. You also had anemia requiring transfusions. Endoscopy shows Portal gastropathy and Small esophageal varices.CT scan of abdomen shows Cirrhosis and portal hypertension. Etiology of cirrhosis unclear at this point . Hepatitis panel sent and follow up the results with Dr Tim . Please follow up with Dr Tim in 1 week. Please avoid using Aleve,Aspirin and Tylenol. I have prescribed oxycodone for your pain. Follow-up plan Please follow up with PCP in 1-2 week. Please follow up with Dr Tim in 1-2 weeks . Follow-up Provider: Florencia Yoon MD Follow-up with PCP in: 2 weeks Provider: Andrés Tim MD Follow-up in: 1 week Jin Klein MD Mar 12, 2017 08:18
[2017-03-12] MEDS ORDERED: OXYC5TAB72 PO (08:20)
[2017-03-12] MEDS ORDERED: ONDA4TAB9 PO (08:20)
--- NOTE | 2017-03-12 08:34 | PCM.DC.MED ---
Discharge Summary Date of Service Mar 12, 2017 Dates of Hospitalization Date of Hospital Admission Mar 11, 2017 at 12:03 Date of Discharge: Mar 12, 2017 Providers: Admitting Physician: Jin Flores MD Primary Care Physician: Florencia Yoon MD Attending Physician: Jin Flores MD Diagnosis at Time of Discharge Diagnosis at Time of Discharge # Upper GI bleeding due to varices # Acute blood loss anemia requiring transfusion # Liver cirrhosis of unclear etiology # History of HTN # History of neck and back pain Consultations GI Dr Tim Procedures XRay, CTs & MRIs PROCEDURE: CT ABDOMEN AND PELVIS WITH CONTRAST ([id number]) INDICATIONS: GI bleed TECHNIQUE: After the administration of oral and intravenous contrast, 5 mm thick sections acquired from the diaphragms to the symphysis. 5 mm thick coronal and sagittal reformats were performed. For radiation dose reduction, the following was used : automated exposure control, adjustment of mA and/or kV according to patient size. COMPARISON: [facility], CT, ABD/PELVIS W&WO CON ([facility] [place][NOTE 3]), 11/09/2012, 8:11. FINDINGS: Image quality: Excellent. ABDOMEN: Lung bases: Lung bases are clear. Heart size is normal. Solid organs: Hepatic contour is nodular, indicating cirrhosis. Gallbladder is surgically absent. Biliary system is non-dilated. Pancreas enhances normally. No adrenal nodules. Right kidney is within normal limits. There is moderate left renal atrophy. Peritoneum and bowel: Addy fundoplication has been performed. Stomach, small bowel, and colon loops are normal in caliber and wall thickness. Pneumoperitoneum. Small amount of ascites. Nodes and vessels: Periesophageal varices are present. No retroperitoneal or mesenteric adenopathy. Aorta and inferior vena cava are normal in caliber. Miscellaneous: No ventral hernias. PELVIS: Genitourinary: Urinary bladder is decompressed. Miscellaneous: No inguinal hernias or adenopathy. Bones: No suspicious bony lesions. No vertebral body compression fractures. IMPRESSION: 1. Cirrhosis and portal hypertension, with associated periesophageal varices. 2. Small amount of ascites. Dictated by: Melissa Cueva M.D. on 03/11/2017 at 20:29 Invasive Procedures PROCEDURE: Esophagogastroduodenoscopy. INDICATION: Anemia, chronic. The patient's ASA classification and Mallampati score and medications as per anesthesia report. INSTRUMENT USED: [id number] PROCEDURE DETAILS: After informed consent was obtained, the patient was brought to the GI suite, where she was placed on oxygen via nasal cannula and monitored with continuous pulse oximeter, telemetry, and blood pressure monitoring. A time-out was performed. Then, she was placed in a left lateral decubitus position and medications were administered for sedation. A bite block was placed. The standard EGD scope was inserted through the bite block and advanced under direct visualization to second portion of duodenum without difficulty. FINDINGS: 1. Normal appearing duodenal bulb, first and second portion. Bile stained mucosa was noted throughout the examined portions of duodenum. 2. Normal appearing pylorus. In the antrum and distal gastric body, there was submucosal hemorrhage noted. The mucosa also had a mosaic appearance suggestive of portal gastropathy. 3. Retroflexed views in the gastric body revealed changes consistent with prior Addy fundoplication. Also noted in the fundus of the mucosa had a mosaic appearance. 4. The GE junction was approximately 36 cm. From 36 cm extending to 30 cm, there were three columns of varices that flattened out with insufflation. The varices had no stigmata of recent bleeding. From 30 cm to the upper esophageal sphincter, the esophagus appeared normal. IMPRESSION: 1. Portal gastropathy. 2. Small esophageal varices. RECOMMENDATIONS: 1. CT of the abdomen. 2. Chronic liver disease workup. 3. Will schedule her for colonoscopy as an outpatient. COMPLICATIONS: None. ESTIMATED BLOOD LOSS: Zero. Andrés Tim MD 03/11/17 2085 Brief History per hPI Rachele is a 66-year-old pleasant lady with past medical history of hiatal hernia s/p Addy fundoplication, peptic ulcer , GERD, chronic back and neck pain, HTN came to emergency room due to generalized weakness and epigastric pain of 2 weeks. Patient states she started to have epigastric dull aching pain 2 weeks ago and she started taking aspirin 81 mg daily 2 weeks ago due to concern for heart disease but continued to have the pain and started to have progressively worsening generalized weakness for the last 2 weeks. She was seen by her PCP who noted anemia on CBC and send her to ED for evaluation of anemia and possible GI bleed. Patient states she also takes Aleve almost every other day for her neck and back pain for many years. She has been feeling generally weak and dyspneic which is more marked on exertion even with walking few steps. Denies any blood thinner use except long-standing Aleve and aspirin for the last 2 weeks. Last colonoscopy 10 years ago. Father of gastric cancer and her brother has history of esophageal cancer. ED course: Initial BP 159/87, HR 98, saturating 100% on room air. Labs unremarkable except anemia with hemoglobin 7.4. Stool occult positive. 2 PRBCs ordered. GI consulted and planning to do endoscopy later today Hospital Course Rachele is a 66-year-old pleasant lady with past medical history of hiatal hernia s/p Addy fundoplication, peptic ulcer , GERD, chronic back/neck pain, and HTN came to emergency room due to generalized weakness and epigastric pain of 2 weeks. # Upper GI bleeding due to esophageal variceal bleeding due to cirrhosis -In setting of combined NSAIDs and aspirin use - endoscopy shows esophageal varices and portal gastropathy -Discontinued NSAIDs and aspirin by PCP 1 day prior to admission -Treated with Protonix drip.Continue Nexium twice a day -CT scan of abdomen consistent with cirrhosis with paraesophageal physis and small ascites. -Hemoglobin responded to 8.5 from 7 after 2 units of PRBCs # Cirrhosis with portal hypertension and esophageal varice -Patient denies heavy alcohol drinking. Drinks 1 beer a month. No history of hepatitis. She was told she has fatty liver by her PCP many years ago. Cause of fever cirrhosis may be due to steatohepatitis. Hepatitis panel sent. She will follow results with Dr Tim -no need for nadolol for now per GI -He plans to do colonoscopy outpatient # Acute blood loss anemia -Due to above -2 PRBCs given on 03/11 # History of HTN -Continue medication # History of neck and back pain -Discharging on OxyCodone. She states she has no real allergy but has a history of vomiting after codeine, will give a dose and make sure she tolerates Full code,verified from patient observation status Discharge home Condition on discharge stable Exam Vital Signs (Last) Date Time Temp Pulse Resp B/P Pulse Ox O2 Delivery O2 Flow Rate FiO2 03/12/17 05:46 95 03/12/17 04:51 36.9 18 138/80 96 Room Air Exam Gen. patient is lying comfortably in hospital bed HEENT: Head is normocephalic atraumatic, pale conjunctiva Lungs clear to auscultation bilaterally Heart regular rate and rhythm without murmurs gallops or rubs Abdomen soft nontender without hepatosplenomegaly Extremities pulses are present dorsalis pedis posterior tibialis and radial. Skin is warm and dry there are no rashes, Psych alert and oriented to person place and time Neuro cranial nerves II through XII are grossly intact Lymph: There is no lymphadenopathy appreciated in the cervical supra infraclavicular regions : no aviles Test 03/11/17 10:13 03/11/17 10:24 03/11/17 12:54 03/11/17 20:43 Troponin T 0.010ug/L (0.0-0.011) Lipase 34U/L (13-60) Hold Mckeon Top Tube Received (Received) Urine Color Yellow (YELLOW) Urine Appearance Hazy (CLEAR,HAZY) Urine pH 5.5 (5.0-8.0) Urine Specific Richards 1.010 (1.003-1.035) Urine Protein Negativemg/dL (NEG,TRACE) Urine Glucose (UA) Negativemg/dL (NEGATIVE) Urine Ketones Negativemg/dL (NEGATIVE) Urine Occult Blood Negative (NEGATIVE) Urine Nitrite Negative (NEGATIVE) Urine Bilirubin Negative (NEGATIVE) Urine Urobilinogen Normalmg/dL (NORMAL) Urine Leukocyte Esterase Trace (NEGATIVE) Urine RBC 0-2/hpf (0-2) Urine WBC 6-10/hpf (0-5) Urine Epithelial Cells Moderate/hpf (NONE-MOD) Urine Crystals None seen (NONE SEEN) Urine Bacteria Many/hpf (NONE-FEW) Urine Hyaline Casts None/lpf (NONE) Urine Granular Casts None seen (NONE SEEN) Urine Waxy Casts None seen (NONE SEEN) Urine Red Blood Cell Casts None seen (NONE SEEN) Urine White Blood Cell Casts None seen (NONE SEEN) Urine Mucus None seen (None Seen) Urine Trichomonas None seen (NONE SEEN) Urine Yeast None (NONE SEEN) Urinalysis Comment None Urine Culture Reflexed Indicated Hold Purple Top Tube Received (Received) Hold Blue Top Tube Received (Received) Hold Red Top Tube Received (Received) Hold [place] Top Tube Received (Received) Test 03/12/17 06:30 White Blood Count 6.3th/mm3 (3.8-10.1) Red Blood Count 3.28mil/mm3 (3.90-5.20) Hemoglobin 8.5g/dL (12.0-15.6) Hematocrit 27.5% (35.0-46.0) Mean Corpuscular Volume 83.8fL (81-100) Mean Corpuscular Hemoglobin 25.9pg (27.0-35.0) Mean Corpuscular Hemoglobin Concent 30.9% (32.0-37.0) Red Cell Distribution Width 15.4% (12.3-15.4) Platelet Count 150bil/L (150-400) Neutrophils (%) (Auto) 65.2% (40-74) Lymphocytes (%) (Auto) 22.4% (14-46) Monocytes (%) (Auto) 7.7% (4-12) Eosinophils (%) (Auto) 3.9% (0-5) Basophils (%) (Auto) 0.6% (0-3) Sodium Level 140mEq/L (134-144) Potassium Level 4.2mEq/L (3.5-5.2) Chloride Level 108mEq/L (97-108) Carbon Dioxide Level 17mmol/L (18-29) Blood Urea Nitrogen 10mg/dL (8-27) Creatinine 0.69mg/dL (0.57-1.00) Estimat Glomerular Filtration Rate 122mL/min (>59) Glucose Level 114mg/dL (60-99) Calcium Level 7.8mg/dL (8.5-10.1) Magnesium Level 1.8mg/dL (1.6-2.6) Total Bilirubin 1.3mg/dL (0.0-1.2) Aspartate Amino Transf (AST/SGOT) 68U/L (0-50) Alanine Aminotransferase (ALT/SGPT) 27U/L (0-32) Alkaline Phosphatase 99U/L (25-165) Total Protein 6.3g/dL (6.4-8.4) Albumin 2.9g/dL (3.4-5.0) Discharge Medications Discharge Medications Cyclobenzaprine (Cyclobenzaprine) 10 Mg Tablet 10 MG PO HS (Reported) Esomeprazole Magnesium (Nexium) 40 Mg Capsule.dr 40 MG PO BID (Reported) Estradiol (Estradiol) 1 Mg Tablet 1.5 MG PO QAM (Reported) Lisinopril (Lisinopril) 20 Mg Tablet 20 MG PO DAILY (Reported) Valacyclovir (Valacyclovir) 500 Mg Tablet 500 MG PO DAILY (Reported) As needed Ondansetron ODT (Zofran ODT) 4 Mg Tablet 4 MG PO Q4H PRN PRN For Nausea Prescribed by: JIN FLORES MD Triamcinolone Acet (Triamcinolone Acetonide Cream) 1 Applic/0.25 Gm Cr 1 APPLIC TOPICAL BID PRN PRN rash (Reported) oxyCODONE (oxyCODONE) 5 Mg Tablet 5 MG PO Q4H PRN PRN For Moderate Pain Prescribed by: JIN FLORES MD Followup Plan Disposition: Home Follow-up plan Please follow up with PCP in 1-2 week. Please follow up with Dr Tim in 1-2 weeks . Discharge Diet: Low fat, Low Sodium Discharge Activity: Limited until seen by PCP Patient Instructions You were hospitalized due to GI bleeding due to esophageal varices. You also had anemia requiring transfusions. Endoscopy shows Portal gastropathy and Small esophageal varices.CT scan of abdomen shows Cirrhosis and portal hypertension. Etiology of cirrhosis unclear at this point . Hepatitis panel sent and follow up the results with Dr Tim . Please follow up with Dr Tim in 1 week. Please avoid using Aleve,Aspirin and Tylenol. I have prescribed oxycodone for your pain. Follow-up Provider: Florencia Yoon MD Follow-up with PCP in: 2 weeks Provider: Andrés Tim MD Follow-up in: 1 week copies to: Andrés Tim MD; Florencia Yoon MD, Melaku MD Mar 12, 2017 08:34
[2017-03-12 09:27] VITALS: BP 126/78; PULSE 90; RESP 18; O2SAT 99
--- NOTE | 2017-03-12 12:30 | NUR ---
Discharge Pt is discharging home with f/u as outpatient with Dr. Fragoso in GI . Educated pt on liver cirrhosis, sx/symptoms to report to MD. Pt verbalizes understanding. Transported pt out by W/C to her POV driven by her spouse.
[2017-03-13 08:07] LABS: Hepatitis A Antibody IgM Negative (Negative); Hepatitis B Core Antibody IgM Negative (Negative)
[2017-03-31] MEDS ORDERED: TRAM50TA2 PO (11:19)
[2017-03-31] MEDS ORDERED: NAPR220C11 PO (11:19)
[2017-04-01] MEDS ORDERED: ONDA4TAB6 PO (15:13)
[2017-04-01] MEDS ORDERED: OXYC-474 PO (15:13)
== END 2017-03-12 12:31 | disposition home or self-care (01) ==
LOC: SED 09:18 → MPC 12:03 → INTOOBSV 12:03
PROVIDERS: ADMIT Internal Medicine; ATTEND Internal Medicine
DX: K76.6 Portal hypertension (principal); K31.89 Other diseases of stomach and duodenum; I85.11 Secondary esophageal varices with bleeding; D62 Acute posthemorrhagic anemia; K74.60 Unspecified cirrhosis of liver; F10.99 Alcohol use, unspecified with unspecified alcohol-induced disorder; K44.9 Diaphragmatic hernia without obstruction or gangrene; K27.9 Peptic ulcer, site unspecified, unspecified as acute or chronic, without hemorrhage or perforation; I10 Essential (primary) hypertension; M54.2 Cervicalgia; M54.9 Dorsalgia, unspecified; K21.9 Gastro-esophageal reflux disease without esophagitis; B00.9 Herpesviral infection, unspecified; Z79.82 Long term (current) use of aspirin
CPT/HCPCS: 36415; 36430; 43235; 74177; 80053; 81000; 83690; 83735; 84484; 85014; 85018; 85025; 86705; 86709; 86850; 86922; 87086; 87088; 87340; 87341; 93005; 96361; 96374; 96375; 96376; 99285; G0378; G0472; J2405; J7030; J7050; J7120; P9021; Q9967

== ENCOUNTER → 2017-04-01 | Day surgery (SDC) | payer MEDICARE ==
[~2017-04-01] VITALS: Ht 162.6 cm; Wt 86.2 kg
[~2017-04-01] MED LIST changes: +0.9% Sodium Chloride 1,000 ML IV ONE; +CYCL10TA9 PO; +ESTR1TAB24 PO; -ESTR42.52 VG; +NAPR220C11 PO; +ONDA4TAB6 PO; +OXYC-474 PO; +fentaNYL-PF 50 mCg/mL 2 mL Inj IVPUSH ONE
[2017-04-01 15:13] VITALS: BP 141/68; PULSE 95; RESP 16; O2SAT 100
[2017-04-01 16:51] VITALS: BP 122/58; PULSE 103; RESP 16; O2SAT 95
[2017-04-01 17:00] VITALS: BP 118/60; PULSE 100; RESP 16; O2SAT 100
[2017-04-01 17:10] VITALS: BP 125/82; PULSE 98; RESP 16; O2SAT 95
[2017-04-01 18:05] LABS: Mean Corpuscular Hemoglobin 24.1 pg (27.0-35.0); Mean Corpuscular Volume 79.2 fL (81-100)
[2017-04-01 18:38] LABS: Unsaturated Iron Binding 410.9 ug/dL
--- NOTE | 2017-04-02 08:09 | ENDO ---
[address] [address] ENDOSCOPY PROCEDURE PATIENT: MIREYA LAY : 1950 MR#: [id number] ADMIT: 04/01/2017 JOB ID: [id number] DATE: 04/01/2017 PROCEDURE: Colonoscopy. INDICATION: Iron deficiency anemia. The patient's ASA classification is 2. Mallampati score is 2. MEDICATIONS: 1. Versed 9 mg. 2. Fentanyl 200 mcg. INSTRUMENT USED: PCF H 180 AL. Prep quality was poor. PROCEDURE DETAILS: After informed consent was obtained, the patient was brought into the GI suite, where she was placed on oxygen via nasal cannula and monitored with continuous pulse oximeter, telemetry and blood pressure monitoring. A time-out was performed. Then, she was placed in the left lateral decubitus position and medications were administered for sedation. Digital rectal examination was performed, which was unremarkable. The colonoscope was then inserted into the rectum and advanced under direct visualization to the cecum, which was identified by the presence of the ileocecal valve and appendiceal orifice. Once the cecum was reached, the colonoscope was withdrawn back into the rectum as the mucosa and lumen were examined. In the rectum, retroflexion was performed. Following retroflexion, remaining air in the rectum was suctioned, and the procedure was completed. FINDINGS: 1. There was fibrinous stool debris scattered throughout the colon, specifically in the cecum and ascending colon and despite attempts at irrigation and suctioning. Our suction channel clogged on several occasions. At this point, further attempts to irrigate and suction were aborted. As the colonoscope was then withdrawn, the mucosa and lumen were examined carefully. No large lesions seen, however, smaller lesions may have been missed. IMPRESSION: Poor prep but otherwise normal examination from rectum to cecum. RECOMMENDATIONS: 1. Repeat colonoscopy with a two day prep. 2. Will obtain CBC to followup on patient's anemia. COMPLICATIONS: None. ESTIMATED BLOOD LOSS: 0.
== END | disposition home or self-care (01) ==
LOC: END 07:36
PROVIDERS: ATTEND Internal Medicine Gastroenterology
DX: D50.9 Iron deficiency anemia, unspecified (principal); K74.60 Unspecified cirrhosis of liver; I85.10 Secondary esophageal varices without bleeding; R18.8 Other ascites; K76.6 Portal hypertension
CPT/HCPCS: 36415; 45378; 82728; 83540; 83550; 85027; 99153; G0500; J2250; J3010; J7030